=== PATIENT | female | born 1980 | race Caucasian/White ===

== ENCOUNTER → 2021-04-01 09:39 | Outpatient (CLI) | payer SELFPAY ==
--- NOTE | 2021-04-01 09:45 | US_ITS ---
STUDY: THYROID ULTRASOUND REASON FOR EXAM: Female, 41 years old. THYROID NODULE TECHNIQUE: Ultrasound evaluation of the thyroid was performed with real-time and static castellon-scale imaging. COMPARISON: None. FINDINGS: RIGHT LOBE: The right lobe of the thyroid gland measures 5.5 x 1.4 x 2.1 cm. There is a homogeneous echotexture. 1.5 x 1.3 x 1 cm upper pole mixed cystic and solid nodule with regular margins. There are 2 smaller nodules. LEFT LOBE: The left lobe of the thyroid gland measures 5.3 x 2.1 x 2.3 cm. There is a homogeneous echotexture. 3.3 x 2.8 x 2.4 cm lower pole solid mass with regular margins and intranodular DOPPLER vascularity. There are 2 smaller lesions. ISTHMUS: The isthmus measures 0.4 cm. The regional lymph nodes are normal. US/Thyroid IMPRESSION: 3.3 cm TI-RADS 3 mass in the left thyroid meets criteria for FNA. Electronically Signed: Andrea Chadwick MD at 2:57 EDT Tel , Service support ,
== END ==
PROVIDERS: PCP Physician Assistant; Visit Provider Physician Assistant
DX: E04.1 Nontoxic single thyroid nodule (principal)
CPT/HCPCS: 76536

== ENCOUNTER → 2022-11-12 | Outpatient (CLI) | payer SELFPAY ==
--- NOTE | 2022-11-12 14:18 | US_ITS ---
STUDY: THYROID ULTRASOUND REASON FOR EXAM: Female, 42 years old. Thyroid nodule. TECHNIQUE: Ultrasound evaluation of the thyroid was performed with real-time and static castellon-scale imaging. COMPARISON: Comparison is made with prior study April 01, 2021. FINDINGS: RIGHT LOBE: The right lobe of the thyroid gland is enlarged and measures 6.5 cm x 2.1 cm x 2.4 cm. There is a heterogeneous echotexture. 3 nodules are seen. The largest nodule is in the upper pole and measures 1.6 x 1.5 cm x 1.5 cm. This nodule is made of cystic and solid components. A second nodule measuring 1.4 cm x 0.95 x 1.4 cm is seen as well. LEFT LOBE: The left lobe of the thyroid gland is enlarged and measures 6.8 cm x 2.3 cm x 2.9 cm. There is a heterogeneous echotexture. There is a dominant 3.3 cm x 3 cm x 2.3 cm solid nodule in the mid lower pole of the left lobe. A similar-appearing nodule is also seen measuring 2.1 cm x 1.7 cm x 2.6. ISTHMUS: The isthmus measures 6.5 mm. The regional lymph nodes are normal. US/Thyroid IMPRESSION: Dominant nodules are seen in both lobes. Biopsy is recommended Electronically Signed: Jayjay Loza MD at 9:56 EDT ,
--- NOTE | 2022-11-12 14:18 | BI_ITS ---
MAMMOGRAPHY - BILATERAL SCREENING REASON FOR EXAM: Female, 42 years old. Routine annual screening examination. PERTINENT HISTORY: Non-contributory. TECHNIQUE: Digital bilateral breast juan (3D mammographic acquisition) in the CC and MLO projections. 2-D mediolateral oblique (MLO) and craniocaudad (CC) views of both breasts were obtained. CAD: Full Field Digital Mammography with Computer Added Detection was performed. COMPARISON: None. Baseline examination. FINDINGS: Breast Composition: There are scattered areas of fibroglandular density. There are no dominant masses or suspicious calcifications. Small bilateral benign-appearing axillary lymph nodes. No other significant abnormalities are identified. BI/SCRN MAMM (CAD)W/JUAN BILAT IMPRESSION: Negative screening mammogram. Yearly followup mammogram recommended. (A) ASSESSMENT CATEGORY: BIRADS Category 2: Benign. A letter regarding these results will be sent to the patient by the facility within 30 days. Approximately 10% of breast cancers are not detected by mammography. A normal mammogram should not delay biopsy of a clinically suspicious abnormality. [id number] Electronically Signed: Jayjay Loza MD at 15:11 EDT ,
== END | disposition home or self-care (01) ==
PROVIDERS: PCP Physician Assistant; Referring Provider Physician Assistant; Visit Provider Physician Assistant
DX: Z12.31 Encounter for screening mammogram for malignant neoplasm of breast (principal); E04.1 Nontoxic single thyroid nodule
CPT/HCPCS: 76536; 77063; 77067